=== PATIENT | female | born 1965 | race Asian ===

== ENCOUNTER 2025-05-04 14:29 | Emergency (ER) | payer OTHER ==
[2025-05-04 16:06] VITALS: TEMP 98.1; BMI 34.3
[2025-05-04 16:41] VITALS: BP 139/80; PULSE 96; RESP 17
[2025-05-04 17:29] LABS: BG HCT 44.0 % (32.4-45.2); VENOUS BASE EXCESS 0.2 mmol/L (-2-2); VENOUS O2 SATURATION 79.5 % (70-80); VENOUS PCO2 44.1 mmHg (38-52); VENOUS PH 7.382 (7.310-7.410)
[2025-05-04 17:31] LABS: ABSOLUTE IMMATURE GRANULOCYTES 0.04 x10^3/uL (0.0-0.031); BASOPHILS # 0.05 x10^3/uL (0.01-0.08); EOSINOPHIL % 1.0 % (0.7-5.8); EOSINOPHILS # 0.13 x10^3/uL (0.04-0.36); MCHC 33.7 g/dl (32.2-35.5); MEAN CELL VOLUME 87.8 fl (79.4-94.8); MEAN PLT VOLUME 11.8 fl (9.4-12.3); MONOCYTE # 0.84 x10^3/uL (0.24-0.86); MONOCYTE % 6.7 % (4.7-12.5); RDW 13.5 % (12.3-16.6)
[2025-05-04 18:15] LABS: CO2 25.0 mmol/L (21-32); GLUCOSE,RANDOM 120.0 mg/dL (74-106)
[2025-05-04 18:18] LABS: CREATININE 0.9 mg/dL (0.55-1.3); SGPT/ALT 29.0 U/L (13-61)
[2025-05-04 18:19] LABS: SGOT/AST 16.0 U/L (15-37)
[2025-05-04 18:20] LABS: TOT PROT 7.3 g/dl (6.4-8.2)
[2025-05-04 18:21] LABS: ALK PHOS 103.0 U/L (45-117)
[2025-05-04 19:11] LABS: HCV DIAGNOSTIC IN-HOUSE W/RFLX NON-REACTIVE (NONREACTIVE)
[2025-05-04 19:12] LABS: HIV INTERPRETATION NEGATIVE (NEGATIVE)
== END 2025-05-04 19:24 | disposition left against medical advice (07) ==
LOC: JERFT 14:29 → JER 14:29
DX: T56.891A Toxic effect of other metals, accidental (unintentional), initial encounter (principal)
CPT/HCPCS: 36415; 71046-TC-FY; 80053; 82375; 82803; 85025; 86803; 87389; 99284-25